=== PATIENT | male | born 1960 | race Caucasian/White ===

== ENCOUNTER 2024-10-03 04:31 | Emergency (ER) | payer SELFPAY ==
[2024-10-03 05:23] VITALS: BMI 31.4
[2024-10-03 05:26] VITALS: BP 165/87
[2024-10-03 06:00] VITALS: BP 141/80
--- NOTE | 2024-10-03 06:58 | ED.GENMED ---
History of Present Illness
General
Chief Complaint: Male Genito-Urinary Symptoms
Source: patient
Exam Limitations: none
Time Seen by Provider: 10/03/24 06:39
History of Present Illness
History of Present Illness:
64-year-old male presents with urinary retention since last evening. He had a full bladder sensation but was unable to urinate. He also had the urge to move his bowels. No fevers. No perianal anesthesia. No other complaints at this time
Phy Exam
Physical Exam
Physical Exam:
General: Well-appearing male no acute respiratory distress
HEENT normocephalic atraumatic
Abdomen is soft nontender nondistended no costovertebral angle tenderness
Extremities: No cyanosis or edema
Course
Vital Signs
Initial and Last Documented VS:
Initial Vital Signs
Temp Pulse Resp Pulse Ox
98.4 F 128 26 98
10/03/24 04:45 10/03/24 04:45 10/03/24 04:45 10/03/24 04:45
Last Documented Vital Signs
Temp Pulse Resp BP Pulse Ox
98.4 F 102 20 141/80 92
10/03/24 04:45 10/03/24 05:26 10/03/24 05:26 10/03/24 06:00 10/03/24 06:00
MDM/Problems Addressed
Differential Diagnosis Includes:
Acute urinary retention. Likely from enlarged prostate. Patient was seen and evaluated by nursing staff and a catheter was placed temporarily to decompress the bladder. Upon my evaluation he is feeling much better. No signs of neurologic
dysfunction. Discussed role for a Baires catheter to be placed to allow the bladder to decompress and he will however he declined this at this time. Will refer to urology. Return precautions were given.
*Pulse Oximetry
SaO2: 92
Oxygen Mode of Delivery: Room air
Patient hypoxic: no
*Critical Care Note
Total Time (30-74mins, 75-104mins- exclusive of procedures): Not Applicable
ED Attending Note
-
Portions of this chart may have been created with voice recognition software.� Occasional wrong word or��sound alike� substitutions may have occurred due to the inherent limitations of voice recognition software.
Discharge Plan
Departure
Patient Disposition: Home (Routine Discharge)
Date of Disposition: 10/03/24
Time of Disposition: 07:00
Patient with high blood pressure during this ER visit?: No
Discharge Problem:
Acute urinary retention
Instructions: Urinary Retention (DC)
Referrals:
Keyon Rose MD [Active, Urology]
UNKNOWN - PT DOES,NOT KNOW [Family Provider]
Activity Restrictions/Additional Instructions:
Please return here if you have further issues urinating otherwise follow-up with urology for next available appointment
Interventions
Interventions:
*Risk Screen - Suicide Last Done: 10/03/24 04:45
*General Assessment Last Done: 10/03/24 05:23
*Neglect/Abuse Screening Last Done: 10/03/24 04:45
*ED- Fall Risk Assessment Last Done: 10/03/24 05:23
*ED COVID-19 Vaccine History Last Done: 10/03/24 05:23
ED-Male Genitourinary Assessment Last Done: 10/03/24 05:23
Discharge Date and Time
Print Language: [place]
== END 2024-10-03 07:11 | disposition home or self-care (01) ==
LOC: EMR 04:31
PROVIDERS: EMERGENCY PHYSICIAN Emergency Medicine
DX: R33.9 Retention of urine, unspecified (principal)
CPT/HCPCS: 99282

== ENCOUNTER → 2024-10-24 08:44 | Outpatient (REF) | payer BC, SELFPAY ==
[2024-10-24 11:13] LABS: ALT (SGPT) 76 U/L (0-50); AST (SGOT) 42 U/L (17-59); Albumin 4.2 g/dl (3.5-5.0); Alkaline Phosphatase 82 U/L (38-126); Blood Urea Nitrogen 15 mg/dl (9-20); Calcium 8.8 mg/dl (8.4-10.2); Carbon Dioxide 23 mmol/L (22-30); Chloride 108 mmol/L (98-107); Glucose 95 mg/dl (70-99); Potassium 4.4 mmol/L (3.5-5.1); Sodium 137 mmol/L (135-145); Total Protein 6.5 g/dl (6.3-8.2); eGFR > 60.00
== END ==
LOC: REG 08:44
PROVIDERS: ATTENDING PHYSICIAN Student in an Organized Health Care Education/Training Program
DX: Z01.812 Encounter for preprocedural laboratory examination (principal)
CPT/HCPCS: 36415; 80053

== ENCOUNTER → 2024-11-14 08:38 | Outpatient (REF) | payer BC, SELFPAY | LOC: RAD 08:38 | PROVIDERS: ATTENDING PHYSICIAN Student in an Organized Health Care Education/Training Program | DX: N40.0 Benign prostatic hyperplasia without lower urinary tract symptoms (principal); R97.20 Elevated prostate specific antigen [PSA]; R33.9 Retention of urine, unspecified; R10.32 Left lower quadrant pain; R10.814 Left lower quadrant abdominal tenderness | CPT/HCPCS: 74177; Q9967 ==

== ENCOUNTER 2025-01-21 06:25 | Day surgery (SDC) | payer BC, SELFPAY | END 2025-01-21 15:14 | disposition home or self-care (01) | LOC: GI 06:25 | PROVIDERS: ATTENDING PHYSICIAN Internal Medicine Gastroenterology | DX: Z12.11 Encounter for screening for malignant neoplasm of colon (principal); Q43.8 Other specified congenital malformations of intestine; K64.8 Other hemorrhoids; K44.9 Diaphragmatic hernia without obstruction or gangrene; K31.7 Polyp of stomach and duodenum; K29.80 Duodenitis without bleeding; K29.70 Gastritis, unspecified, without bleeding; K21.00 Gastro-esophageal reflux disease with esophagitis, without bleeding; R89.7 Abnormal histological findings in specimens from other organs, systems and tissues | CPT/HCPCS: 43239; G0121; 88305; 88342 ==